=== PATIENT | male | born 1950 | race Caucasian/White ===

== ENCOUNTER → 2023-08-29 08:11 | Outpatient (REF) | payer MEDICARE, OTHER, SELFPAY ==
[2023-08-29 10:06] LABS: % Basophils 0.5 % (0-2); % Eosinophils 0.9 % (0-6); % Immature Granulocytes 0.8 % (0-0.5); % Lymphocytes 11.8 % (20.5-51.1); % Monocytes 10.5 % (1.7-9.3); % Neutrophils 75.5 % (42.2-75.2); Absolute Basophils 0.1 10^3/uL (0-0.2); Absolute Eosinophils 0.1 10^3/uL (0-0.7); Absolute Immature Granulocytes 0.1 10^3/uL (0-0.05); Absolute Lymphocytes 1.6 10^3/uL (1.2-3.4); Absolute Monocytes 1.4 10^3/uL (0.1-0.6); Hematocrit 40.1 % (39.0-52.0); Hemoglobin 13.5 g/dL (13.0-18.0); Mean Corp Hgb Conc. 33.7 g/dL (33.0-37.0); Mean Corpuscular Hgb 30.3 pg (27.0-31.0); Mean Corpuscular Volume 89.9 fL (80.0-94.0); Mean Platelet Volume 10.1 fL (7.4-10.4); Nucleated Red Blood Cells % 0 % (-); Platelet Count 324 10^3/uL (130-400); Red Blood Cell Count 4.46 10^6/uL (4.70-6.10); Red Cell Dist. Width 12.6 % (11.5-14.5); White Blood Cell Count 13.3 10^3/uL (4.8-10.8)
[2023-08-29 10:22] LABS: ALT (SGPT) 37 U/L (0-50); AST (SGOT) 29 U/L (17-59); Albumin 4.1 g/dl (3.5-5.0); Alkaline Phosphatase 70 U/L (38-126); Blood Urea Nitrogen 18 mg/dl (9-20); Calcium 9.3 mg/dl (8.4-10.2); Carbon Dioxide 27 mmol/L (22-30); Chloride 99 mmol/L (98-107); Glucose 111 mg/dl (70-99); HDL Cholesterol 39 mg/dl; LDL Cholesterol, Calculated 221 mg/dl; Potassium 4.6 mmol/L (3.5-5.1); Sodium 136 mmol/L (135-145); Total Bilirubin 1.1 mg/dl (0.2-1.3); Total Cholesterol 280 mg/dl (50-199); Total Protein 7.3 g/dl (6.3-8.2); Triglyceride 104 mg/dl (10-149); Very Low Density Lipoprotein 20 mg/dl (0-30); eGFR > 60.00
[2023-08-29 10:44] LABS: PSA, Total - Screen 0.59 ng/ml (0.0-4.0); TSH Reflex To Free T4 2.79 uIU/ml (0.47-4.68)
[2023-08-29 10:54] LABS: Erythrocyte Sed Rate 47 mm/hour (0-20)
[2023-08-30 13:58] LABS: Lyme Antibody Screen, EIA Negative (Negative)
[2023-09-01 01:57] LABS: ANA, IgG Reflex to HEp-2 None Detected (None Detected)
== END ==
LOC: HWLAB 08:11
PROVIDERS: ATTENDING PHYSICIAN Physician Assistant; REFERRING PHYSICIAN Internal Medicine Cardiovascular Disease
DX: R21 Rash and other nonspecific skin eruption (principal); I50.9 Heart failure, unspecified; Z12.5 Encounter for screening for malignant neoplasm of prostate
CPT/HCPCS: 36415; 80053; 80061; 84443; 85025; 85652; 86038; 86618; G0103

== ENCOUNTER 2023-09-07 16:59 | Emergency (ER) | payer MEDICARE, OTHER, SELFPAY ==
[2023-09-07 17:11] VITALS: BP 105/70
[2023-09-07 18:03] LABS: % Basophils 0.3 % (0-2); % Eosinophils 0.6 % (0-6); % Immature Granulocytes 0.5 % (0-0.5); % Lymphocytes 12.5 % (20.5-51.1); % Monocytes 10.5 % (1.7-9.3); % Neutrophils 75.6 % (42.2-75.2); Absolute Eosinophils 0.1 10^3/uL (0-0.7); Absolute Immature Granulocytes 0.1 10^3/uL (0-0.05); Absolute Lymphocytes 1.5 10^3/uL (1.2-3.4); Absolute Monocytes 1.2 10^3/uL (0.1-0.6); Absolute Neutrophils 8.9 10^3/uL (1.4-6.5); Hematocrit 34.2 % (39.0-52.0); Hemoglobin 11.6 g/dL (13.0-18.0); Mean Corp Hgb Conc. 33.9 g/dL (33.0-37.0); Mean Corpuscular Hgb 30.3 pg (27.0-31.0); Mean Corpuscular Volume 89.3 fL (80.0-94.0); Mean Platelet Volume 9.5 fL (7.4-10.4); Nucleated Red Blood Cells % 0 % (-); Platelet Count 376 10^3/uL (130-400); Red Blood Cell Count 3.83 10^6/uL (4.70-6.10); Red Cell Dist. Width 12.8 % (11.5-14.5); White Blood Cell Count 11.8 10^3/uL (4.8-10.8)
[2023-09-07 18:21] LABS: ALT (SGPT) 24 U/L (0-50); AST (SGOT) 20 U/L (17-59); Albumin 3.9 g/dl (3.5-5.0); Alkaline Phosphatase 64 U/L (38-126); Blood Urea Nitrogen 24 mg/dl (9-20); Calcium 8.9 mg/dl (8.4-10.2); Carbon Dioxide 26 mmol/L (22-30); Chloride 102 mmol/L (98-107); Creatine Phosphokinase 98 U/L (55-170); Glucose 118 mg/dl (70-99); Potassium 3.9 mmol/L (3.5-5.1); Sodium 136 mmol/L (135-145); Total Bilirubin 0.8 mg/dl (0.2-1.3); eGFR > 60.00
[2023-09-07 18:43] LABS: Erythrocyte Sed Rate 66 mm/hour (0-20)
--- NOTE | 2023-09-07 19:22 | ED.GENMED ---
History of Present Illness
General
Chief Complaint: Abnormal Lab Value
Source: patient
Exam Limitations: none
Time Seen by Provider: 09/07/23 18:46
History of Present Illness
History of Present Illness:
This is a 72 year old male that comes in with c/o abnormal labs. States that in the middle of July he started with no energy. States that he then started with a rash on his face so he went to see the PCP. States that he thought this was an
Autoimmune thing. States that he also had a cough at that time. Patient had tried to call his Compliance Counsel also but was unable to see them. States that he was place on Claritin and things cleared up. Then it started to move back on his head. States
that he did not feel that this was an infection but he did labs at that time. States that he was given a steroid taper and this helped. Then this week he started with trouble with his legs. State that he had some pain in the hip, thigh and knee.
Yesterday he went to the PCP and he did Sed rate and CRP. Patient was called to day as they were elevated. Patient was again given a steroid taper and also Protonix by the Compliance Counsel. States that he is occasionally dizzy. Denies any fever, chills,
chest pain, SOB, abd pain, nausea, vomiting, diarrhea, headache, urinary burning.
Past History
Past History
ED Past Medical History: Arrthythmia (Atrial fib), CHF and Other (Cardiomyopathy)
ED Past Surgical History: Cardiac (Defib) and Orthopedic (Suleman knee surgery)
Social History
Tobacco: Former smoker
Alcohol: None
Personal:
Living: with family
Review of Systems
Review of Systems
All Other Systems: ROS reviewed and negative except as documented in HPI and ROS
Constitutional: Reports no symptoms; Denies fever or chills
EENT: Reports no symptoms
Respiratory: Reports no symptoms; Denies cough or trouble breathing
Cardiac: Reports no symptoms; Denies chest pain
ABD/GI: Reports no symptoms; Denies abdominal pain, nausea, vomiting or diarrhea
: Reports no symptoms; Denies dysuria, frequency or urgency
Musculoskeletal: Reports other (Leg pains)
Skin: Reports no symptoms
Neurological: Reports dizzy (Occasionally); Denies headache
Psychiatric: Reports no symptoms
Phy Exam
General Physical Exam
General Presentation: well appearing and no apparent distress
General age: appears stated age
General Skin: warm and dry
General Habitus: elderly
General Mental: alert
General Hydration: appears well hydrated
ENT Exam
ENT Exam: TM's normal, pharynx normal and neck supple
Eye Exam
Eye Exam: EOMI
Cardiovascular Exam
Cardiovascular Exam: no edema, normal peripheral pulses and irregularly irregular
Pulmonary Exam
Pulmonary Exam: lungs clear, no respiratory distress, no rales, chest non tender, no crackles, no rhonchi, no wheezing and no cough
Gastrointestinal Exam
Gastrointestinal Exam: normal bowel sounds, non tender, soft, no organomegaly, no pulsatile mass and non distended
Musculoskeletal Exam
Musculoskeletal Exam: full ROM and no edema
Skin Exam
Skin Exam: normal color, warm/dry, no rash and no petechia
Psychiatric Exam
Psychiatric Exam: normal mood/affect
Course
Orders/Labs/Results
Orders:
Orders
09/07/23 17:50
CRP [C-Reactive Protein] Urgent
Complete Blood Count/With Diff Urgent
Comprehensive Metabolic Panel Urgent
Creatine Phosphokinase Urgent
Erythrocyte Sed Rate Urgent
09/07/23 19:22
Add On- LAB Urgent
Tests Added?: Lyme Progressive
Abnormal Lab Results
09/07/23
17:50
WBC 11.8 H 10^3/uL
(4.8-10.8)
RBC 3.83 L 10^6/uL
(4.70-6.10)
Hgb 11.6 L g/dL
(13.0-18.0)
Hct 34.2 L %
(39.0-52.0)
Abs Immat Gran (auto) 0.1 H 10^3/uL
(0-0.05)
Absolute Neuts (auto) 8.9 H 10^3/uL
(1.4-6.5)
Absolute Monos (auto) 1.2 H 10^3/uL
(0.1-0.6)
Neutrophils % 75.6 H %
(42.2-75.2)
Lymphocytes % 12.5 L %
(20.5-51.1)
Monocytes % 10.5 H %
(1.7-9.3)
ESR 66 H mm/hour
(0-20)
BUN 24 H mg/dl
(9-20)
Creatinine 0.6 L mg/dL
(0.7-1.3)
Glucose 118 H mg/dl
(70-99)
C-Reactive Protein 83.50 H mg/L
(0.0-10.00)
09/07/23 17:50
09/07/23 17:50
WBC very slightly elevated. H/H slightly low. Sed rate and CRP elevation. Dehydration.
Vital Signs
Initial and Last Documented VS:
Initial Vital Signs
Temp Pulse Resp BP Pulse Ox
98.4 F 101 16 105/70 97
09/07/23 17:11 09/07/23 17:11 09/07/23 17:11 09/07/23 17:11 09/07/23 17:11
Last Documented Vital Signs
Temp Pulse Resp BP Pulse Ox
98.4 F 101 16 105/70 97
09/07/23 17:11 09/07/23 17:11 09/07/23 17:11 09/07/23 17:11 09/07/23 17:11
MDM/Problems Addressed
Differential Diagnosis Includes:
Lyme disease, Psoriatic Arthritis
MDM/Problems Addressed:
This is a 72 year old male that comes in with c/o abnormal labs. States that his Inflammatory markers are elevated and the PCP told him to come to the ER. Patient has already been ordered a Steroid taper and Protonix.
Labs have been check along with Lyme titer. Explained to patient that he is dehydrated. Encouraged patient to increase his water intake. Patient needs to follow up with the a Pre Billing Clinician as there are other blood work that can be done that is not
done in the ER. Patient to start the Steroid taper and her Protonix. Return with any fever or any other concerns.
Chronic conditions affecting care:
NA
Acute Exacerbation and/or Progression of Chronic Illness:
NA
*Pulse Oximetry
Patient hypoxic: no
*EKG
Interpreted by ED Provider?: NA
Rate: EKG- N/A
*Entrepreneurial Finance Professor Interpretation
Rate: Entrepreneurial Finance Professor- N/A
*Critical Care Note
Total Time (30-74mins, 75-104mins- exclusive of procedures): Not Applicable
ED Attending Note
-
Portions of this chart may have been created with voice recognition software.� Occasional wrong word or��sound alike� substitutions may have occurred due to the inherent limitations of voice recognition software.
Discharge Plan
Departure
Patient Disposition: Home (Routine Discharge)
Date of Disposition: 09/07/23
Time of Disposition: 19:39
Patient with high blood pressure during this ER visit?: No
Condition: Good
Covid-19: Not Applicable
Discharge Problem:
Elevated inflammatory markers, Dehydration
Instructions: Dehydration, Adult (DC)
Prescriptions:
No Action
carvedilol 6.25 MG tablet
6.25 mg PO BID
losartan 25 MG tablet
12.5 mg PO DAILY
Patient Comments:
half tablet
furosemide 20 MG tablet
20 mg PO DAILY
[id number] serr [Osteo Bi-Flex (5-Loxin)] 1 EACH tablet
1 ea PO DAILY
Relief Factor Tablet
2 tab PO DAILY
apixaban [Eliquis] 5 MG tablet
5 mg PO BID Qty: 0 0RF
Rx Instructions:
Restart on Sunday 4/8 am
Referrals:
Remington Brizuela MD [Consulting Staff] - Follow up in 2-3 days
Prosper Desai DO [Family Provider] - Call in 1-3 days for appt
Activity Restrictions/Additional Instructions:
As discussed, your blood work shows that your WBC are very slightly elevated and that you are dehydrated. Please increase your water intake to 8-8oz glasses daily if you are not on a fluid restriction. Your Inflammatory markers are elevated. Please
use the steroid and the Protonix that was ordered by your doctor. Follow up with the Pre Billing Clinician for further evaluation. IF YOU HAVE ANY FEVER OR ANY OTHER CONCERNS PLEASE RETURN TO THE EMERGENCY ROOM.
Interventions
Interventions:
*Risk Screen - Suicide Last Done: 09/07/23 19:37
*General Assessment Last Done: 09/07/23 17:11
*Neglect/Abuse Screening Last Done: 09/07/23 19:37
ED- Fall Risk Assessment Last Done: 09/07/23 19:37
*ED COVID-19 Vaccine History Last Done: 09/07/23 17:11
Discharge Date and Time
Print Language: BELGIAN
[2023-09-07 19:36] VITALS: BMI 26.2
[2023-09-07 19:39] VITALS: BP 111/76
[2023-09-10 15:09] LABS: Lyme Antibody Screen, EIA Negative (Negative)
== END 2023-09-07 20:07 | disposition home or self-care (01) ==
LOC: EMR 16:59
PROVIDERS: Registered Nurse; EMERGENCY PHYSICIAN Emergency Medicine; FAMILY PHYSICIAN Family Medicine
DX: R79.89 Other specified abnormal findings of blood chemistry (principal); E86.0 Dehydration; M25.559 Pain in unspecified hip; M25.569 Pain in unspecified knee; M79.659 Pain in unspecified thigh; I48.91 Unspecified atrial fibrillation; I50.9 Heart failure, unspecified; I42.9 Cardiomyopathy, unspecified; R42 Dizziness and giddiness; Z87.891 Personal history of nicotine dependence
CPT/HCPCS: 99283; 80053; 82550; 85025; 85652; 86140; 86618

== ENCOUNTER → 2023-10-10 09:31 | Outpatient (REF) | payer MEDICARE, OTHER, SELFPAY ==
[2023-10-10 13:26] LABS: Blood Urea Nitrogen 20 mg/dl (9-20); Carbon Dioxide 26 mmol/L (22-30); Chloride 103 mmol/L (98-107); Glucose 104 mg/dl (70-99); Potassium 4.4 mmol/L (3.5-5.1); Sodium 137 mmol/L (135-145); eGFR > 60.00
[2023-10-10 13:52] LABS: Digoxin < 0.4 ng/ml (0.8-2.0)
== END ==
LOC: HWLAB 09:31
PROVIDERS: ATTENDING PHYSICIAN Internal Medicine Cardiovascular Disease; FAMILY PHYSICIAN Physician Assistant
DX: I50.22 Chronic systolic (congestive) heart failure (principal)
CPT/HCPCS: 36415; 80048; 80162

== ENCOUNTER → 2023-10-19 13:42 | Outpatient (REF) | payer MEDICARE, OTHER, SELFPAY | LOC: RCS 13:42 | PROVIDERS: ATTENDING PHYSICIAN Internal Medicine Cardiovascular Disease; FAMILY PHYSICIAN Family Medicine | DX: I50.22 Chronic systolic (congestive) heart failure (principal) | CPT/HCPCS: 93306 ==